=== PATIENT | male | born 1985 | race Caucasian/White ===

== ENCOUNTER 2024-01-24 22:23 | Emergency (ER) | payer OTHER ==
[~2024-01-24] VITALS: Ht 175.3 cm; Wt 88.5 kg
[2024-01-25 00:04] LABS: *BILIRUBIN,URIN NEGATIVE (NEGATIVE); *BLOOD, URINE NEGATIVE (NEGATIVE); *CLARITY,URINE CLEAR (CLEAR); *COLOR,URINE YELLOW (YELLOW); *KETONES,URINE NEGATIVE (NEGATIVE); *PROTEIN,URINE NEGATIVE (NEGATIVE); *UROBILINOGEN,URINE 0.2 E.U./dl (NORMAL); LEUKOCYTE ESTERASE ,URINE NEGATIVE (NEGATIVE); NITRITE, URINE NEGATIVE (NEGATIVE); UGLUCOSE NEGATIVE (NEGATIVE)
[2024-01-25] MEDS ORDERED: ACETAMINOPHEN 500 MG TABLET ONE (02:15)
[2024-01-25] MEDS ORDERED: CYCLOBENZAPRINE HCL 10 MG TABLET ONE (02:16)
[2024-01-25] MEDS ORDERED: NAPROXEN 500 MG TABLET ONE (02:16)
[2024-01-25] MEDS ORDERED: CYCL10TA9 PO (02:18)
[2024-01-25] MEDS ORDERED: ACET-3102 PO (02:18)
[2024-01-25] MEDS: ACETAMINOPHEN 500 MG TABLET PO ONE (02:18)
[2024-01-25] MEDS: NAPROXEN 500 MG TABLET PO ONE (02:18)
[2024-01-25] MEDS: CYCLOBENZAPRINE HCL 10 MG TABLET PO ONE (02:18)
[2024-01-25] MEDS ORDERED: LIDO1ADH71 TD (02:18)
[2024-01-25] MEDS ORDERED: NAPR-1009 PO (02:19)
[2024-01-25 03:12] VITALS: BP 126/79; O2SAT 99
== END 2024-01-25 03:13 | disposition home or self-care (01) ==
LOC: ER 22:23
DX: Z79.899 Other long term (current) drug therapy (principal); M54.50 Low back pain, unspecified
CPT/HCPCS: 72100; A4606; A4663; A9150